=== PATIENT | male | born 1965 | race Caucasian/White ===

== ENCOUNTER → 2018-03-26 | Outpatient (CLI) | payer BC | LOC: BMCIMAGING 15:02 → EDSTATUS 15:03 → BMCIMAGING 15:03 | PROVIDERS: ATTEND Emergency Medicine | DX: S69.92XA Unspecified injury of left wrist, hand and finger(s), initial encounter (principal) ==

== ENCOUNTER 2018-03-30 16:10 | Emergency (ER) | payer BC ==
[2018-03-30] MEDS: NS 1,000 ML IV ONE (17:02)
[2018-03-30] MEDS: fentaNYL 100 MCG/2 ML INJ IVP ONE (17:02)
[2018-03-30] MEDS: ONDANSETRON 4 MG/2 ML VIAL IVP ONE (17:02)
[2018-03-30 17:19] LABS: PLATELET COUNT 206 10^3/uL (150-400)
--- NOTE | 2018-03-30 17:34 | EDPHY ---
H & P Stated Complaint: Left lower abdo pain for 5 days. Time Seen by Provider: 03/30/18 17:02 HPI/ROS: CHIEF COMPLAINT: Left abdominal flank pain HISTORY OF PRESENT ILLNESS: This is a healthy 52-year-old male who has had 5 days of left abdominal and flank pain. The pain seems to move back and forth between these 2 locations. The pain waxes and wanes, is shooting in nature, and can be quite severe. He has not been able to find a comfortable position when the pain is present. Initially he thought that this might be a muscular pain. He has been taking Motrin twice daily. He has not had hematuria or dysuria. No fever, vomiting, diarrhea, constipation, chest pain, cough, or shortness of breath. REVIEW OF SYSTEMS: A ten system review of systems was performed and is negative with the exception of the items mentioned in the HPI. Past medical history: Negative Past surgical history: Negative Social history: He lives with his . He drinks alcohol occasionally. No tobacco use. No illicits. He works as a regional commercial sales manager. General Appearance: Alert. Vital signs reviewed. Eyes: Pupils equal and round, no conjunctival injection, no discharge. Anicteric. ENT, Mouth: Mucous membranes are moist, no oropharyngeal erythema or edema. Neck: No lymphadenopathy, supple. Respiratory: Lungs are clear to auscultation; no wheezes, rales, or rhonchi. Cardiovascular: Regular rate and rhythm; no murmur, rub, or gallop. Gastrointestinal: Abdomen is soft and nontender, no masses or organomegaly, bowel sounds normal. Skin: Warm and dry, no rashes on exposed skin, normal color. Back: Nontender to palpation over the thoracolumbar spine. No CVAT. Extremities: No lower extremity edema, no calf tenderness or swelling. Neurological: Alert and oriented. Moving all four extremities easily and equally. Psychiatric: Normal affect. - Personal History Current Tetanus Diphtheria and Acellular Pertussis (TDAP): Yes - Medical/Surgical History Hx Asthma: No Hx Chronic Respiratory Disease: No Hx Diabetes: No Hx Cardiac Disease: No Hx Renal Disease: No Hx Cirrhosis: No Hx Alcoholism: No Hx HIV/AIDS: No Hx Splenectomy or Spleen Trauma: No Other PMH: Denies. - Social History Smoking Status: Never smoked Constitutional: Initial Vital Signs Temperature (C) 36.6 C 03/30/18 16:17 Heart Rate 62 03/30/18 16:17 Respiratory Rate 16 03/30/18 16:17 Blood Pressure 110/84 H 03/30/18 16:17 O2 Sat (%) 97 03/30/18 16:17 O2 Delivery Mode Room Air Allergies/Adverse Reactions: No Known Allergies Allergy (Unverified 03/30/18 16:20) Home Medications: Medication Instructions Recorded Hydrocodone/APAP 5/325 [[place] 1 - 2 tab PO Q4 PRN #10 tab 03/30/18 5/325 (RX)] Medical Decision Making ED Course/Re-evaluation: My initial impression was that this patient likely had a ureteral stone. His history was consistent with that diagnosis. Emergency department he received 1 L IV normal saline, 100 mcg IV fentanyl, IV Toradol, and IV Zofran. With these measures is pain resolved. He did not return. CBC, chemistries, urine dip are negative. We discussed the advisability of performing CT scan to assess for kidney stone. It was agreed that this information would be helpful, as his pain has been present on and off for at least [address] scan without IV contrast was performed and was negative for kidney stone. The only positive finding was of constipation. The patient does not feel that he is constipated. He has been moving his bowels daily. We discussed measures to treat constipation. I am recommending [id number] pain medication and providing a small quantity of Vicodin to use for severe pain, which he says he has been experiencing at night and which has been affecting his sleep. He understands that Vicodin can cause constipation. I am recommending that he be re-evaluated if his pain persists or if he develops any new or concerning symptoms. He understands that the etiology of his pain has not been definitively diagnosed. Differential Diagnosis: I considered a differential diagnosis that includes but is not limited to ureterolithiasis, constipation, urinary retention, urinary tract infection, pyelonephritis, appendicitis, and bowel obstruction. - Data Points Laboratory Results: Laboratory Results 03/30/18 17:08 03/30/18 17:08 Medications Given: Discontinued Medications Fentanyl (Sublimaze) 100 mcg IVP EDNOW ONE Stop: 03/30/18 16:47 Last Admin: 03/30/18 17:02 Dose: 100 mcg Sodium Chloride (Ns) 1,000 mls @ 0 mls/hr IV EDNOW ONE; Wide Open PRN Reason: Protocol Stop: 03/30/18 16:47 Last Admin: 03/30/18 17:02 Dose: 1,000 mls Ketorolac Tromethamine (Toradol) 15 mg IVP EDNOW ONE Stop: 03/30/18 18:24 Last Admin: 03/30/18 18:40 Dose: 15 mg Ondansetron HCl (Zofran) 4 mg IVP EDNOW ONE Stop: 03/30/18 16:47 Last Admin: 03/30/18 17:02 Dose: 4 mg Departure - Departure Disposition: Home, Routine, Self-Care Clinical Impression: Flank pain Abdominal pain Qualifiers: Abdominal location: left lower quadrant Qualified Code(s): R10.32 - Left lower quadrant pain Constipation Qualifiers: Constipation type: unspecified constipation type Qualified Code(s): K59.00 - Constipation, unspecified Condition: Good Instructions: Constipation (ED), Acute Abdominal Pain (ED), Flank Pain (ED) Additional Instructions: As you know, is not clear what has been causing this pain. We do not see a kidney stone on your CT scan. I recommend that you continue with the ibuprofen , an anti-inflammatory, 400 mg with food every 6 hr. I am providing small quantity of Vicodin, an opiate pain medication with Tylenol , for you to use for more severe pain as needed. The Vicodin can cause constipation in the CT scan indicates that you might have constipation. Use it judiciously. I recommend that you try MiraLax to see if you can promote bowel movements. If you develop fever, vomiting, diarrhea, severe persistent pain, any new or concerning symptoms--you should be re-evaluated. Referrals: Rani Garay MD [Primary Care Provider] - As per Instructions Prescriptions: Hydrocodone/APAP 5/325 [[place] 5/325 (RX)] 1 - 2 tab PO Q4 PRN #10 tab PRN Reason: pain
[2018-03-30] MEDS: KETOROLAC 30 MG/1 ML SDV IVP ONE (18:40)
[2018-03-30 18:45] VITALS: BP 128/81
== END 2018-03-30 19:17 | disposition home or self-care (01) ==
DX: K59.00 Constipation, unspecified (principal); E86.9 Volume depletion, unspecified
CPT/HCPCS: 96374; J1885; J2405; J3010